=== PATIENT | female | born 1985 | race Caucasian/White ===

== ENCOUNTER 2019-11-02 12:07 | Emergency (ER) | payer SELFPAY ==
--- NOTE | 2019-11-02 12:58 | UC ---
Throat Pain/Nasal Isra HPI - HPI Summary HPI Summary: Pt stated that a week ago she started to have a sore throat that has now moved to chest and has sinus pressure and post nasal drip. Pt denies any fever or contact with anyone with covid. Nothing MAKES IT BETTER/WORSE RECENT TRAVEL: NO RECENT COVID EXPOSURE: NO GI SYMPTOMS: NONE - History of Current Complaint Chief Complaint: UCRespiratory Stated Complaint: RESP COMPLAINT Time Seen by Provider: 11/02/19 12:57 Hx Obtained From: Patient Hx Last Menstrual Period: one week ago - Allergies/Home Medications Allergies/Adverse Reactions: Allergies Allergy/AdvReac Type Severity Reaction Status Date / Time No Known Allergies Allergy Verified 10/04/19 07:49 Home Medications: Home Medications Levothyroxine TAB* [Synthroid 88 MCG TAB*] 137 mcg PO QAM 01/13/13 [History Confirmed 11/02/19] Acetaminophen 325 - 650 mg PO Q4H PRN 09/20/17 [History Confirmed 11/02/19] Cholecalciferol TAB* [Vitamin D TAB*] 1,000 unit PO DAILY 11/02/19 [History Confirmed 11/02/19] Norethindrone [Fanny] 1 tab PO DAILY 11/02/19 [History Confirmed 11/02/19] PMH/Surg Hx/FS Hx/Imm Hx Previously Healthy: Yes Endocrine History: Hypothyroidism - Surgical History Surgical History: Yes Surgery Procedure, Year, and Place: left knee reconstructive surgery - 1999. d& c 10/25/14. wisdom teeth removed. 2015. D&C 09/22/17. THYROIDECTOMY - Family History Known Family History: Positive: None - Social History Alcohol Use: None Substance Use Type: None Smoking Status (MU): Never Smoked Tobacco - Immunization History Most Recent Influenza Vaccination: 04/23/15 Most Recent Tetanus Shot: 07/17/15 Most Recent Pneumonia Vaccination: never Review of Systems All Other Systems Reviewed And Are Negative: Yes Constitutional: Negative: Fever, Chills, Fatigue Skin: Negative: Rash ENT: Positive: Sore Throat, Sinus Congestion, Other - POST NASAL DRIP Respiratory: Negative: Shortness Of Breath, Cough Neurological/Mental Status: Negative: Headache Physical Exam Triage Information Reviewed: Yes Vital Signs Reviewed: Yes Throat Pain/Nasal Course/Dx - Course Course Of Treatment: GIVEN EXPOSURE RISK WE USED THE TELEPHONE TO EVAUATE HER. RAPID STREP/FLU NEG, TESTING FOR COVID GIVEN MILD SYMPTOMS. DISC COVID PRECAUTIONS,ISOLATION. O2 GOOD, AFEBRILE. - Differential Dx/Diagnosis Differential Diagnosis/HQI/PQRI: Sinusitis, URI, Other Provider Diagnosis: Upper respiratory infection Discharge ED - Sign-Out/Discharge Documenting (check all that apply): Patient Departure All imaging exams completed and their final reports reviewed: No Studies - Discharge Plan Condition: Good Disposition: HOME Patient Education Materials: Upper Respiratory Infection (ED) Referrals: Brisa Mayes MD [Primary Care Provider] - Additional Instructions: Please follow the patient education for treatment of your viral infection. You do not have strep or flu. Please go to the emergency room if you have worsening respiratory symptoms. This is self-limiting and should resolve on its own. Testing for COVID HAS BEEN DONE AND YOU WILL BE NOTIFIED BY THE [facility] - Billing Disposition and Condition Condition: GOOD Disposition: Home
[2019-11-02 13:01] VITALS: BP 125/88
[2019-11-02 13:37] LABS: Influenza A Molecular Negative (Negative); Influenza B Molecular Negative (Negative)
== END 2019-11-02 14:24 | disposition home or self-care (01) ==
LOC: UCEAST 12:07
DX: J06.9 Acute upper respiratory infection, unspecified (principal); Z20.828 Contact with and (suspected) exposure to other viral communicable diseases; E03.9 Hypothyroidism, unspecified; Z79.890 Hormone replacement therapy
CPT/HCPCS: 87651; 99211; G0463; U0002